=== PATIENT | male | born 1965 | race Caucasian/White ===

== ENCOUNTER 2025-06-20 19:24 | Emergency (ER) | payer MEDICAID, SELFPAY ==
[2025-06-20 19:30] VITALS: BP 112/69; PULSE 97; RESP 17; TEMP 36.4; O2SAT 93; BMI 39.5
--- NOTE | 2025-06-20 20:20 | W.ED.EXTPRO ---
Documented by User: DONYA Cameron 06/20/25 21:41 HPI - Extremity Problem General: Chief complaint: Extremity Injury, Lower Stated complaint: Rt hip and leg hurting Time Seen by Provider: 06/20/25 19:37 Source: patient Mode of arrival: ambulatory Limitations: no limitations History of Present Illness: Patient is a 59-year-old male who presents the emergency department complaining of right hip and leg pain beginning about 4 to 5 days ago. States that he did not injure himself, no heavy lifting prior to onset of the pain, there is no trauma. Denies history of sciatica or other lumbar radiculopathy. He has not had any bowel or bladder incontinence or saddle anesthesia. He notes that the pain started in the right paralumbar muscles and has since radiated into the buttock and occasionally goes down the right thigh, not past the knee. No numbness or weakness in his leg. He has not taken any medications. Denies history of previous back surgery. No history of IV drug use, cancer, chronic steroid use, fevers, night sweats, or any other concerns. MD Complaint: extremity pain (Right lower extremity), joint pain (Right hip pain) and other (Right lower back pain) Onset (ago): day(s) Pain Consistency: constant Location: right and lower extremity Radiation: distal Exacerbating factors: range of motion, weight bearing and walking Associated symptoms: Deny chest pain, fever(s) or rash Related Data Previous Rx's ?Medication ?Instructions ?Recorded aripiprazole 2 mg tablet (Abilify) 2 mg PO DAILY #30 tabs 11/22/19 desvenlafaxine succinate 50 mg 50 mg PO DAILY #30 tabs 11/22/19 tablet,extended release 24 hr (Pristiq) diazepam 5 mg tablet (Valium) 5 mg PO TID #90 tabs 11/22/19 zolpidem 10 mg tablet (Ambien) 10 mg PO .QHS #30 tabs 11/22/19 ketorolac 10 mg tablet 10 mg PO Q8H PRN pain #15 tabs 06/20/25 methocarbamol 750 mg tablet 750 mg PO Q8H 5 days #15 tabs 06/20/25 Allergies Allergy/AdvReac Type Severity Reaction Status Date / Time No Known Allergies Allergy Unverified 11/22/19 09:02 Review of Systems General: Reports: 10 or more systems reviewed and unremarkable except in HPI and below Const: Reports: other (denies trauma); Denies: fever(s), change in weight or night sweats Card: Denies: chest pain, lightheadedness or syncope Resp: Denies: dyspnea GI: Denies: abdominal pain or fecal incontinence : Denies: urinary incontinence Musc: Reports: back pain, extremity pain (Right lower extremity) and joint pain (Right hip); Denies: neck pain, extremity swelling or joint swelling Skin/Breast: Denies: rash or skin pain Neuro: Denies: headache(s), numbness in extremities, weakness in extremities, sensory changes, lack of coordination, difficulty walking, frequent falls or involuntary movements PFSH ED PFSH: Medical History Mild intellectual disabilities Chronic schizophrenia Physical Exam Const: COMMON NORMALS: no acute distress, patient oriented x3, no limitations, healthy appearing and alert Resp: COMMON NORMALS: normal respiratory effort, No retractions, No use of accessory muscles and clear to auscultation bilaterally AUSCULTATION: clear to auscultation bilaterally Cardio: COMMON NORMALS: regular rate, regular rhythm, S1 normal heart sound present and S2 normal heart sound present RATE: regular rate RHYTHM: regular rhythm HEART SOUNDS: S1 normal heart sound present and S2 normal heart sound present Back/Pelvis: COMMON NORMALS: thoracic and lumbar spine normal to inspection, no thoracic nor lumbar tenderness and thoraco-lumbar ROM normal THORACIC SPINE/UPPER BACK: Yes normal to inspection LUMBAR SPINE/LOWER BACK: Yes normal to inspection and Yes straight leg raise positive right Straight leg raise positive details right: at 40 degrees OTHER: Normal visual examination. No spinous process tenderness or paracervical, parathoracic, or paralumbar tenderness to palpation. Full active range of motion. Extremity: COMMON NORMALS: normal to inspection and full ROM NARRATIVE EXTREMITY EXAM: Right hip and right thigh nontender to palpation Neuro: COMMON NORMALS: patient oriented x3, moves all extremities, no focal motor deficits, no sensory deficits noted, deep tendon reflexes 2+ bilaterally and gait normal SENSORIUM/ORIENTATION: Yes alert OTHER: L3, L4, L5, and S1 nerve sensations intact. Normal knee jerk and ankle jerk reflexes. Skin: COMMON NORMALS: no rashes or lesions noted GENERAL SKIN EXAM: no rashes or lesions noted Course Vital Signs: Vital signs: Vital Signs Temperature 97.6 F 06/20/25 19:30 Pulse Rate 97 06/20/25 19:30 Respiratory Rate 17 06/20/25 19:30 Blood Pressure 112/69 06/20/25 19:30 Pulse Oximetry 93 06/20/25 19:30 Oxygen Delivery Me thod Room Air 06/20/25 19:30 MDM - Extremity (Nontraumatic) Medical Decision Making Patient presented with right lower back pain radiating down his right leg. This has been ongoing for a few days, there is no preceding trauma or heavy lifting. He had no red flag back symptoms with history or on physical exam. He notes quite a bit of relief after IM Toradol, IM Norflex, and [place] here in the emergency department. I am suspicious of a lumbar radiculopathy and will treat with medications at home and have him keep his already scheduled follow-up appointment with primary care next week for reevaluation. Other measures were discussed such as heat and ice application and physical therapy/exercise. He is instructed to remain active and avoid any potential exacerbating lifts or movements. No radiology studies performed this visit Discharge Plan Discharge Patient Disposition: Home Clinical Impression: Lumbar radiculopathy Condition: Stable Prescriptions: New ketorolac 10 mg tablet 10 mg PO Q8H PRN (Reason: pain) Qty: 15 0RF methocarbamol 750 mg tablet 750 mg PO Q8H 5 Days Qty: 15 0RF No Action aripiprazole [Abilify] 2 mg tablet 2 mg PO DAILY Qty: 30 0RF desvenlafaxine succinate [Pristiq] 50 mg tablet extended release 24 hr 50 mg PO DAILY Qty: 30 0RF diazepam [Valium] 5 mg tablet 5 mg PO TID Qty: 90 0RF zolpidem [Ambien] 10 mg tablet 10 mg PO .QHS Qty: 30 0RF Discharge Orders: Discharge ED (Routine); Ordered 06/20/25 Ordered By: Alfredo Salguero Referrals: Jono Scott DO [Primary Care Provider, Internal Medicine] Patient Instructions: Patient Portal & Nahid Instructions Activity Restrictions/Additional Instructions: Lumbar Radiculopathy Discharge Diagnosis: Right-sided lumbar radiculopathy, improved with intramuscular orphenadrine (Norflex), ketorolac (Toradol), and hydrocodone/acetaminophen ([place]) in the emergency department. Discharge Medications: - Cyclobenzaprine (muscle relaxant): Prescribed for short-term use to address muscle spasm. Evidence for efficacy in radiculopathy is limited; use should be time-limited and monitored for sedation and anticholinergic effects. - Ketorolac (Toradol): NSAID prescribed for short-term pain control. NSAIDs may provide modest short-term relief in lumbar radiculopathy, though benefit for sciatica specifically is less clear. Monitor for gastrointestinal, renal, and cardiovascular adverse effects; avoid exceeding recommended duration (typically <= days for ketorolac). Activity and Home Management: - Remain active as tolerated: Avoid prolonged bed rest; gradual mobilization is preferred over inactivity and is associated with better outcomes. Walking and gentle movement are encouraged. - Pain education: Reassure regarding the generally favorable prognosis of lumbar radiculopathy. Most cases improve over weeks with conservative management. - Physical therapy/exercise: Consider initiation of a home exercise program focusing on core stabilization, stretching, and directional preference exercises (e.g., Jair method), which may help reduce pain and improve function. Supervised physical therapy may be considered if symptoms persist. - Heat/ice application: May provide symptomatic relief for some patients. - Patient education and self-management: Emphasize understanding of the condition, expected course, and self-care strategies. Additional Home Treatment Options: - Scheduled acetaminophen may be used for additional pain control, within recommended dosing limits. - Neural mobilization and gentle stretching can be considered as adjuncts. - Avoid heavy lifting, twisting, or high-impact activities until symptoms improve. Follow-Up: - Primary care provider appointment: Maintain scheduled follow-up next week for reassessment and consideration of further management, including physical therapy referral or advanced imaging if symptoms persist beyond 4?6 weeks or worsen. Strict Return Precautions: - Return to the emergency department immediately for any of the following: - New or worsening weakness in the legs - Loss of sensation in the groin or inner thighs (saddle anesthesia) - Loss of bowel or bladder control (incontinence or retention) - Severe, unremitting pain not controlled by prescribed medications - Fever, chills, or other signs of infection These symptoms may indicate serious complications such as cauda equina syndrome or other emergent pathology and require prompt evaluation. Notes on Opioid Use: - Opioids (e.g., [place]) should be reserved for severe pain and used for the shortest duration possible due to risk of dependence and adverse effects. There is limited evidence for their efficacy in radiculopathy, and long-term use is discouraged. Summary: Conservative management?including NSAIDs, muscle relaxants, activity, and patient education?is the first-line approach for lumbar radiculopathy in the absence of red flag symptoms. Most patients experience improvement within weeks. Escalation to advanced imaging, epidural steroid injection, or surgical consultation is reserved for persistent or progressive symptoms. 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[employer] Documented by User: Andrzej Chance DO 06/20/25 22:52 HPI - Extremity Problem General: Chief complaint: Extremity Injury, Lower Stated complaint: Rt hip and leg hurting Time Seen by Provider: 06/20/25 19:37 Related Data Previous Rx's ?Medication ?Instructions ?Recorded aripiprazole 2 mg tablet (Abilify) 2 mg PO DAILY #30 tabs 11/22/19 desvenlafaxine succinate 50 mg 50 mg PO DAILY #30 tabs 11/22/19 tablet,extended release 24 hr (Pristiq) diazepam 5 mg tablet (Valium) 5 mg PO TID #90 tabs 11/22/19 zolpidem 10 mg tablet (Ambien) 10 mg PO .QHS #30 tabs 11/22/19 ketorolac 10 mg tablet 10 mg PO Q8H PRN pain #15 tabs 06/20/25 methocarbamol 750 mg tablet 750 mg PO Q8H 5 days #15 tabs 06/20/25 Allergies Allergy/AdvReac Type Severity Reaction Status Date / Time No Known Allergies Allergy Unverified 11/22/19 09:02 [facility] ED PFSH: Medical History Mild intellectual disabilities Chronic schizophrenia Course Vital Signs: Vital signs: Vital Signs Temperature 97.6 F 06/20/25 19:30 Pulse Rate 97 06/20/25 19:30 Respiratory Rate 17 06/20/25 19:30 Blood Pressure 112/69 06/20/25 19:30 Pulse Oximetry 93 06/20/25 19:30 Oxygen Delivery Me thod Room Air 06/20/25 19:30 MDM - Extremity (Nontraumatic) Medical Decision Making Patient presented with right lower back pain radiating down his right leg. This has been ongoing for a few days, there is no preceding trauma or heavy lifting. He had no red flag back symptoms with history or on physical exam. He notes quite a bit of relief after IM Toradol, IM Norflex, and [place] here in the emergency department. I am suspicious of a lumbar radiculopathy and will treat with medications at home and have him keep his already scheduled follow-up appointment with primary care next week for reevaluation. Other measures were discussed such as heat and ice application and physical therapy/exercise. He is instructed to remain active and avoid any potential exacerbating lifts or movements. This patient was originally seen by Mr. Jose M PA-C. I agree with his history, evaluation, and treatment. Discharge Plan Discharge Patient Disposition: Home Clinical Impression: Lumbar radiculopathy Condition: Stable Prescriptions: New ketorolac 10 mg tablet 10 mg PO Q8H PRN (Reason: pain) Qty: 15 0RF methocarbamol 750 mg tablet 750 mg PO Q8H 5 Days Qty: 15 0RF No Action aripiprazole [Abilify] 2 mg tablet 2 mg PO DAILY Qty: 30 0RF desvenlafaxine succinate [Pristiq] 50 mg tablet extended release 24 hr 50 mg PO DAILY Qty: 30 0RF diazepam [Valium] 5 mg tablet 5 mg PO TID Qty: 90 0RF zolpidem [Ambien] 10 mg tablet 10 mg PO .QHS Qty: 30 0RF Discharge Orders: Discharge ED (Routine); Ordered 06/20/25 Ordered By: Alfredo Salguero Referrals: oJno Scott DO [Primary Care Provider, Internal Medicine] Patient Instructions: Patient Portal & Nahid Instructions Activity Restrictions/Additional Instructions: Lumbar Radiculopathy Discharge Diagnosis: Right-sided lumbar radiculopathy, improved with intramuscular orphenadrine (Norflex), ketorolac (Toradol), and hydrocodone/acetaminophen ([place]) in the emergency department. Discharge Medications: - Cyclobenzaprine (muscle relaxant): Prescribed for short-term use to address muscle spasm. Evidence for efficacy in radiculopathy is limited; use should be time-limited and monitored for sedation and anticholinergic effects. - Ketorolac (Toradol): NSAID prescribed for short-term pain control. NSAIDs may provide modest short-term relief in lumbar radiculopathy, though benefit for sciatica specifically is less clear. Monitor for gastrointestinal, renal, and cardiovascular adverse effects; avoid exceeding recommended duration (typically <= days for ketorolac). Activity and Home Management: - Remain active as tolerated: Avoid prolonged bed rest; gradual mobilization is preferred over inactivity and is associated with better outcomes. Walking and gentle movement are encouraged. - Pain education: Reassure regarding the generally favorable prognosis of lumbar radiculopathy. Most cases improve over weeks with conservative management. - Physical therapy/exercise: Consider initiation of a home exercise program focusing on core stabilization, stretching, and directional preference exercises (e.g., Jair method), which may help reduce pain and improve function. Supervised physical therapy may be considered if symptoms persist. - Heat/ice application: May provide symptomatic relief for some patients. - Patient education and self-management: Emphasize understanding of the condition, expected course, and self-care strategies. Additional Home Treatment Options: - Scheduled acetaminophen may be used for additional pain control, within recommended dosing limits. - Neural mobilization and gentle stretching can be considered as adjuncts. - Avoid heavy lifting, twisting, or high-impact activities until symptoms improve. Follow-Up: - Primary care provider appointment: Maintain scheduled follow-up next week for reassessment and consideration of further management, including physical therapy referral or advanced imaging if symptoms persist beyond 4?6 weeks or worsen. Strict Return Precautions: - Return to the emergency department immediately for any of the following: - New or worsening weakness in the legs - Loss of sensation in the groin or inner thighs (saddle anesthesia) - Loss of bowel or bladder control (incontinence or retention) - Severe, unremitting pain not controlled by prescribed medications - Fever, chills, or other signs of infection These symptoms may indicate serious complications such as cauda equina syndrome or other emergent pathology and require prompt evaluation. Notes on Opioid Use: - Opioids (e.g., [place]) should be reserved for severe pain and used for the shortest duration possible due to risk of dependence and adverse effects. There is limited evidence for their efficacy in radiculopathy, and long-term use is discouraged. Summary: Conservative management?including NSAIDs, muscle relaxants, activity, and patient education?is the first-line approach for lumbar radiculopathy in the absence of red flag symptoms. Most patients experience improvement within weeks. Escalation to advanced imaging, epidural steroid injection, or surgical consultation is reserved for persistent or progressive symptoms. 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
[2025-06-20] MEDS: HYDROcodone-acetaminophen 7.5-325 mg Tablet 1 TAB PO (21:00)
[2025-06-20] MEDS: orphenadrine 30 mg/mL Inj 2 mL 60 MG IM (21:19)
== END 2025-06-20 22:19 | disposition home or self-care (01) ==
PROVIDERS: Emergency Provider Physician Assistant; PCP Internal Medicine
DX: M54.16 Radiculopathy, lumbar region (principal)
CPT/HCPCS: 96372; 99284; J1885; J2360; J9999